=== PATIENT | male | born 2000 | race Two or more races ===

== ENCOUNTER → 2023-10-18 | Outpatient (REF) | LOC: M PLAIMG 09:18 | PROVIDERS: ATTEND Internal Medicine | DX: R06.02 Shortness of breath (principal) ==

== ENCOUNTER 2023-11-06 16:07 | Observation (INO) | payer OTHER, BC ==
[~2023-11-06] VITALS: Ht 175.3 cm; Wt 84.6 kg
[2023-11-06 17:56] LABS: BASO % 0.3 % (0.0-1.0); EOS % 0.1 % (0.0-3.0); HEMOGLOBIN 15.2 g/dl (13.5-17.5); LYMPH # 0.4 10^3/uL (1.5-5.0); LYMPH % 3.1 % (24.0-44.0); MEAN CORPUSCULAR HEMOGLOBIN 28.7 pg (27.0-33.0); MEAN CORPUSCULAR HGB CONC 34.5 g/dl (32.0-36.5); MEAN CORPUSCULAR VOLUME 83.2 fl (80.0-96.0); MONO # 0.1 10^3/uL (0.0-0.8); MONO % 0.5 % (2.0-8.0); NEUTROPHILS # 11.6 10^3/uL (1.5-8.5); NEUTROPHILS % 95.4 % (36.0-66.0); PLATELET COUNT, AUTOMATED 156 10^3/uL (150-450); RED BLOOD COUNT 5.29 10^6/uL (4.30-6.10); WHITE BLOOD COUNT 12.2 10^3/uL (4.0-10.0)
[2023-11-06 18:09] LABS: LIPASE 26 U/L (12-53)
[2023-11-06 18:11] LABS: ALBUMIN 4.6 G/DL (3.2-5.2); ALKALINE PHOSPHATASE 72 U/L (46-116); ALT/SGPT 28 U/L (7.0-40); AST/SGOT 20 U/L (<34); BILIRUBIN,DIRECT 0.2 MG/DL (<0.4); BILIRUBIN,TOTAL 0.8 MG/DL (0.3-1.2); BLOOD UREA NITROGEN 20 MG/DL (9-23); CALCIUM LEVEL 9.6 MG/DL (8.5-10.1); CARBON DIOXIDE LEVEL 24 MMOL/L (20-31); CHLORIDE LEVEL 104 MMOL/L (98-107); CREATININE FOR GFR 1.13 MG/DL (0.70-1.30); GLOMERULAR FILTRATION RATE > 60.0 (>60); GLUCOSE, FASTING 103 MG/DL (60-100); POTASSIUM SERUM 3.1 MMOL/L (3.5-5.1); SODIUM LEVEL 139 MMOL/L (136-145); TOTAL PROTEIN 7.4 G/DL (5.7-8.2)
[2023-11-06] MEDS: ONDANSETRON 4MG 2ML VIAL IV ONE (18:50)
[2023-11-06] MEDS: NS 1,000 ML IV ONE (18:50)
[2023-11-06] MEDS: PIPERACILLIN/TAZOBACTAM SOD 4.5 GM in D5W MINI-BAG PLUS 50 ML IV ONE (18:50)
[2023-11-06] MEDS: MORPHINE 4 MG/ML 1ML VIAL IV ONE (18:52)
[2023-11-06] MEDS: GASTROGRAFIN SOLUTION 30ML PO SCH (18:52)
[2023-11-06] MEDS: ACETAMINOPHEN TAB 650MG DOSE (2X325MG) PO ONE (18:53)
[2023-11-06] MEDS: POTASSIUM CHLORIDE 10MEQ SR TABLET PO ONE (18:53)
[2023-11-06] MEDS ORDERED: ISOVUE-370 76% 100ML VIAL As Ordered ONE (20:06)
[2023-11-06] MEDS ORDERED: NS 1,000 ML IV SCH (22:30)
[2023-11-06] MEDS ORDERED: ONDANSETRON 4MG ORAL DISINTEGRATING TAB SL PRN ×2 (22:30→22:45)
[2023-11-06] MEDS ORDERED: MAALOX 30 ML SUSP *UDC PO PRN ×2 (22:30→22:40)
[2023-11-06] MEDS ORDERED: MOM 30ML SUSPENSION UDC PO PRN ×2 (22:30→22:45)
[2023-11-06] MEDS ORDERED: ACETAMINOPHEN TAB 650MG DOSE (2X325MG) PO PRN ×2 (22:30→22:40)
[2023-11-06] MEDS ORDERED: TOPI-21 PO (22:50)
[2023-11-06] MEDS ORDERED: IBUP1TAB6 PO (22:50)
[2023-11-06] MEDS ORDERED: FLON1SPR NARES (22:50)
[2023-11-06] MEDS ORDERED: APAP325T4 PO (22:50)
[2023-11-06] MEDS ORDERED: ZOLO100T PO (22:50)
[2023-11-06] MEDS ORDERED: PRAZ1CAP PO (22:50)
[2023-11-06] MEDS ORDERED: AZEL1SPR3 NARES (22:50)
[2023-11-06] MEDS ORDERED: VITA100093 PO (22:50)
[2023-11-06] MEDS ORDERED: TRIA25CR TOP (22:50)
[2023-11-06] MEDS ORDERED: HOME MED LIST COMPLETE! XX SCH (22:55)
[2023-11-06] MEDS: NS 1,000 ML IV SCH (23:47)
[2023-11-07 00:10] VITALS: BP 108/62; TEMP 97.7; O2SAT 99
[2023-11-07 00:54] LABS: INR 1.24; PROTHROMBIN TIME 15.3 SECONDS (12.5-14.5)
[2023-11-07 01:00] LABS: MAGNESIUM LEVEL 1.6 MG/DL (1.8-2.4)
[2023-11-07 01:15] LABS: PROCALCITONIN >50.00 ng/ml
[2023-11-07] MEDS: MAG SULF 1GM/100ML (MAG RUN) 1 GM in IV 1 EA IV ONE (02:21)
[2023-11-07] MEDS: PHENAZOPYRIDINE 100 MG TAB PO SCH (03:00)
[2023-11-07] MEDS: PIPERACILLIN/TAZOBACTAM SOD 3.375 GM in D5W MINI-BAG PLUS 50 ML IV SCH (03:58)
[2023-11-07 04:00] VITALS: BP 106/48; TEMP 97; O2SAT 98
[2023-11-07 05:55] LABS: HEMATOCRIT 40.4 % (42.0-52.0); HEMOGLOBIN 13.7 g/dl (13.5-17.5); MEAN CORPUSCULAR HGB CONC 33.9 g/dl (32.0-36.5); MEAN CORPUSCULAR VOLUME 85.4 fl (80.0-96.0); PLATELET COUNT, AUTOMATED 152 10^3/uL (150-450); RED BLOOD COUNT 4.73 10^6/uL (4.30-6.10); WHITE BLOOD COUNT 21.6 10^3/uL (4.0-10.0)
[2023-11-07 06:31] LABS: ALBUMIN 3.7 G/DL (3.2-5.2); ALKALINE PHOSPHATASE 58 U/L (46-116); ALT/SGPT 22 U/L (7.0-40); AST/SGOT 14 U/L (<34); BILIRUBIN,TOTAL 0.9 MG/DL (0.3-1.2); BLOOD UREA NITROGEN 16 MG/DL (9-23); CALCIUM LEVEL 8.9 MG/DL (8.5-10.1); CARBON DIOXIDE LEVEL 26 MMOL/L (20-31); CHLORIDE LEVEL 105 MMOL/L (98-107); CREATININE FOR GFR 0.98 MG/DL (0.70-1.30); GLOMERULAR FILTRATION RATE > 60.0 (>60); GLUCOSE, FASTING 115 MG/DL (60-100); MAGNESIUM LEVEL 2.2 MG/DL (1.8-2.4); POTASSIUM SERUM 4.2 MMOL/L (3.5-5.1); PROCALCITONIN >50.00 ng/ml; SODIUM LEVEL 135 MMOL/L (136-145); TOTAL PROTEIN 6.5 G/DL (5.7-8.2)
[2023-11-07] MEDS: ENOXAPARIN 40MG/0.4ML SYRINGE (J1650 PER 10MG) SC SCH (08:20)
[2023-11-07] MEDS: DOCUSATE SODIUM 100MG CAPSULE PO SCH (08:20)
[2023-11-07] MEDS ORDERED: DOCUSATE SODIUM 100MG CAPSULE PO SCH (09:00)
[2023-11-07 10:30] LABS: GC DNA AMPLIFICATION NEGATIVE (NEGATIVE)
[2023-11-07 11:12] LABS: BASO # 0.1 10^3/uL (0.0-0.2); BASO % 0.2 % (0.0-1.0); LYMPH # 0.8 10^3/uL (1.5-5.0); LYMPH % 3.9 % (24.0-44.0); MONO # 0.7 10^3/uL (0.0-0.8); MONO % 3.1 % (2.0-8.0)
[2023-11-07 12:00] VITALS: BP 116/57; TEMP 98.1; O2SAT 99
[2023-11-07 12:55] LABS: BASO # 0.1 10^3/uL (0.0-0.2); BASO % 0.4 % (0.0-1.0); EOS # 0.1 10^3/uL (0.0-0.5); EOS % 0.4 % (0.0-3.0); HEMATOCRIT 38.9 % (42.0-52.0); HEMOGLOBIN 13.2 g/dl (13.5-17.5); LYMPH # 1.3 10^3/uL (1.5-5.0); LYMPH % 7.2 % (24.0-44.0); MEAN CORPUSCULAR HEMOGLOBIN 29.2 pg (27.0-33.0); MEAN CORPUSCULAR HGB CONC 33.9 g/dl (32.0-36.5); MEAN CORPUSCULAR VOLUME 86.1 fl (80.0-96.0); MONO % 5.4 % (2.0-8.0); NEUTROPHILS # 15.9 10^3/uL (1.5-8.5); NEUTROPHILS % 85.7 % (36.0-66.0); PLATELET COUNT, AUTOMATED 136 10^3/uL (150-450); RED BLOOD COUNT 4.52 10^6/uL (4.30-6.10); WHITE BLOOD COUNT 18.6 10^3/uL (4.0-10.0)
[2023-11-07] MEDS: PANTOPRAZOLE 40MG TAB (PROTONIX) PO SCH (15:00)
[2023-11-07 21:03] VITALS: BP 109/48; TEMP 99.5; O2SAT 97
[2023-11-08 03:57] VITALS: BP 120/71; TEMP 97; O2SAT 94
[2023-11-08 06:55] LABS: BASO # 0.1 10^3/uL (0.0-0.2); BASO % 0.6 % (0.0-1.0); EOS # 0.1 10^3/uL (0.0-0.5); EOS % 0.9 % (0.0-3.0); HEMATOCRIT 36.2 % (42.0-52.0); HEMOGLOBIN 12.1 g/dl (13.5-17.5); LYMPH # 1.7 10^3/uL (1.5-5.0); LYMPH % 14.2 % (24.0-44.0); MEAN CORPUSCULAR HEMOGLOBIN 28.7 pg (27.0-33.0); MEAN CORPUSCULAR HGB CONC 33.4 g/dl (32.0-36.5); MONO # 0.9 10^3/uL (0.0-0.8); NEUTROPHILS # 9.4 10^3/uL (1.5-8.5); NEUTROPHILS % 76.9 % (36.0-66.0); PLATELET COUNT, AUTOMATED 129 10^3/uL (150-450); RED BLOOD COUNT 4.21 10^6/uL (4.30-6.10); WHITE BLOOD COUNT 12.2 10^3/uL (4.0-10.0)
[2023-11-08 07:33] LABS: BLOOD UREA NITROGEN 13 MG/DL (9-23); CARBON DIOXIDE LEVEL 24 MMOL/L (20-31); CHLORIDE LEVEL 111 MMOL/L (98-107); CREATININE FOR GFR 1.14 MG/DL (0.70-1.30); GLOMERULAR FILTRATION RATE > 60.0 (>60); GLUCOSE, FASTING 91 MG/DL (60-100); POTASSIUM SERUM 4.1 MMOL/L (3.5-5.1); SODIUM LEVEL 140 MMOL/L (136-145)
[2023-11-08 12:00] VITALS: BP 121/69; TEMP 98.2; O2SAT 98
[2023-11-08] MEDS ORDERED: CIPR250T3 PO (14:33)
[2023-11-08] MEDS ORDERED: METR-265 PO (14:33)
== END 2023-11-08 15:50 | disposition home or self-care (01) ==
LOC: M ED 16:07 → M MS5PR 16:08
PROVIDERS: ADMIT Internal Medicine; ATTEND Hospitalist
DX: K52.9 Noninfective gastroenteritis and colitis, unspecified (principal); I88.0 Nonspecific mesenteric lymphadenitis; F41.9 Anxiety disorder, unspecified; F32.A Depression, unspecified; E55.9 Vitamin D deficiency, unspecified; D72.829 Elevated white blood cell count, unspecified; Z79.2 Long term (current) use of antibiotics; Z79.899 Other long term (current) drug therapy
CPT/HCPCS: 36415; 51701; 71045; 74177; 80048; 80053; 80076; 81001; 83605; 83690; 83735; 84145; 85025; 85610; 85652; 85730; 86140; 87040; 87486; 87507; 87581; 87633; 87798; 87810; 87850; 96361; 96365; 96366; 96375; 99285; G0378; J1650; J2405; J2543; J3475; Q9963; Q9967